=== PATIENT | male | born 1960 | race Hispanic/Latino ===

== ENCOUNTER 2018-02-04 04:49 | Emergency (ER) | payer OTHER ==
[2018-02-04 05:08] VITALS: BP 128/82; PULSE 80; RESP 18; TEMP 98.3; O2SAT 96
--- NOTE | 2018-02-04 05:11 | ED PDOC ---
Upper Extremity Pain/Injury Time Seen by Provider: 02/04/18 05:02 Chief Complaint (Nursing): Upper Extremity Problem/Injury Chief Complaint (Provider): right wrist pain History Per: Patient History/Exam Limitations: no limitations Onset/Duration Of Symptoms: Hrs Current Symptoms Are (Timing): Still Present Additional Complaint(s): 57 y/o male presents for evaluation of right arm pain x 8 hours. Patient states he tripped and fell last night, used right arm to break fall. Patient reports pain from right forearm to right hand, with most pain diffusely at the wrist. Applied ice with little relief. Denies numbness/weakness right upper extremity, limitation of movement. Past Medical History Reviewed: Historical Data, Nursing Documentation, Vital Signs Vital Signs: Last Vital Signs Temp 98.3 F 02/04/18 05:01 Pulse 80 02/04/18 05:01 Resp 18 02/04/18 05:01 BP 128/82 02/04/18 05:01 Pulse Ox 96 02/04/18 05:01 - Medical History PMH: No Chronic Diseases - Family History Family History: States: No Known Family Hx - Living Arrangements Living Arrangements: With Family - Home Medications Home Medications: Ambulatory Orders Medication Instructions Recorded Mineral Oil/White Petrolatum 1 applic OS HS #1 tube 04/16/15 [Lacri-Lube] Polyethylene Glycol/Polyvinyl 1 drop OS Q1 #15 ml 04/16/15 [Artificial Tears] Prednisone 40 mg PO DAILY #12 tab 04/16/15 Ibuprofen [Motrin Tab] 800 mg PO Q8 PRN #20 tab 02/04/18 - Allergies Allergies/Adverse Reactions: Allergies Allergy/AdvReac Type Severity Reaction Status Date / Time No Known Allergies Allergy Verified 02/04/18 05:01 Review of Systems ROS Statement: Except As Marked, All Systems Reviewed And Found Negative Musculoskeletal: Positive for: Arm Pain, Hand Pain Physical Exam - Reviewed Nursing Documentation Reviewed: Yes Vital Signs Reviewed: Yes - Physical Exam Appears: Positive for: Well, Non-toxic, No Acute Distress Pulses-Radial (L): 2+ Pulses-Radial (R): 2+ Extremity: Positive for: Normal ROM, Tenderness (diffuse right wrist with + edema. + snuffbox tenderness. No obvious deformity. No distal metacarpal/ phalanx tenderness. Distal NV/motor intact), Capillary Refill (<2 sec b/l UE) Neurologic/Psych: Positive for: Alert, Oriented. Negative for: Motor/Sensory Deficits - ECG O2 Sat by Pulse Oximetry: 96 - Other Rad xray right hand X-Ray: Viewed By Me X-Ray Interpretation: +scaphoid fx, ?old 5th metacarpal head fx? xray right wrist X-Ray: Viewed By Me X-Ray Interpretation: no acute findings xray right forearm X-Ray: Viewed By Me X-Ray Interpretation: no acute findings - Progress ED Course And Treament: ibuprofen, xray Patient educated on findings, placed in thumb spica immobilizer Advised follow up hand specialist RICE Rx ibuprofen provided Return precautions given Disposition - Clinical Impression Clinical Impression: Fracture of scaphoid of right wrist - Patient ED Disposition Is Patient to be Admitted: No Counseled Patient/Family Regarding: Studies Performed, Diagnosis, Need For Followup, Rx Given - Disposition Referrals: Jordan Beth MD [Primary Care Provider] - Corrie Kelly MD [Staff Provider] - Disposition: Routine/Home Disposition Time: 05:36 Condition: STABLE Prescriptions: Ibuprofen [Motrin Tab] 800 mg PO Q8 PRN #20 tab PRN Reason: Pain, Moderate (4-7) Instructions: Wrist Fracture (DC) Forms: [employer] ([place]), [facility] ED School/Work Excuse
--- NOTE | 2018-02-04 08:14 | RAD ---
PROCEDURE: Right Hand Radiographs. HISTORY: fall, pain COMPARISON: None. FINDINGS: BONES: A bony fragment is seen in the dorsal proximal to mid wrist with overlying prominent soft tissue edema compatible with a triquetral fracture. The remaining carpal bones appear intact including the navicular bone. CT can confirm these findings. No subluxation or dislocation. A small bony calcifications seen lateral to the distal epiphysis proximal phalanx right small finger, well corticated on all sides not represent an acute fracture. This could reflect a small chronic chip or avulsion fracture as it is not in a typical positioned represent a sesamoid bone. Heterotopic calcification is also possible. SOFT TISSUES: Prominent dorsal wrist soft tissue edema identified. OTHER FINDINGS: None. IMPRESSION: No acute right hand fracture evident. Evidence of a true decrease or fracture of the wrist. CT can confirm.
--- NOTE | 2018-02-04 08:17 | RAD ---
PROCEDURE: Right Wrist Radiographs. HISTORY: fall, pain COMPARISON: None. FINDINGS: BONES: Prominent soft tissue edema overlies the dorsal wrist without displaced fracture appreciable throughout the right wrist although lateral view the right hand suggested triquetrum fracture. Follow-up CT is advised to confirm integrity of the carpal bones nevertheless. The distal radius and proximal metacarpal bones appear intact swells the distal ulna. JOINTS: Normal. No dislocation. SOFT TISSUES: Normal. OTHER FINDINGS: None. IMPRESSION: No definitive fracture dislocation however prominent soft edema is seen at the dorsal right wrist soft tissues. Bony fragment was suggested in lateral right hand radiograph in the dorsal wrist suspicious for fracture of the triquetrum. Follow-up CT of the right wrist is recommended.
--- NOTE | 2018-02-04 08:19 | RAD ---
PROCEDURE: Radiographs of the Right Forearm HISTORY: fall, pain COMPARISON: None available. TECHNIQUE: Frontal and lateral views obtained. FINDINGS: BONES: No fracture or destructive lesion. JOINT SPACES: Unremarkable. OTHER FINDINGS: Soft tissue edema is seen at the dorsal mid right forearm region. Incidental evidence of triquetrum fracture reiterated at the dorsal right wrist which is not as apparent in the right wrist radiographs but is more apparent in the right hand radiographs also performed 02/04/2018. IMPRESSION: No fracture of the radius or ulna although prominent dorsal soft tissue edema is identified. Incidental right wrist triquetral fracture again questioned.
== END 2018-02-04 06:00 | disposition home or self-care (01) ==
LOC: H.ER 04:49
DX: S62.002A Unspecified fracture of navicular [scaphoid] bone of left wrist, initial encounter for closed fracture (principal); W01.0XXA Fall on same level from slipping, tripping and stumbling without subsequent striking against object, initial encounter; Y92.89 Other specified places as the place of occurrence of the external cause